=== PATIENT | female | born 1990 ===

== ENCOUNTER 2017-05-30 18:08 | Emergency (ER) | payer OTHER ==
[~2017-05-30] VITALS: Ht 172.7 cm; Wt 122.5 kg
[2017-05-30] MEDS ORDERED: RINGWORM14.2 GM TOP (19:24)
== END 2017-05-30 19:32 | disposition home or self-care (01) ==
LOC: ER 18:08
DX: R21 Rash and other nonspecific skin eruption (principal); G56.01 Carpal tunnel syndrome, right upper limb; Z88.0 Allergy status to penicillin; Z88.2 Allergy status to sulfonamides
CPT/HCPCS: 99282